=== PATIENT | female | born 1995 | race Caucasian/White ===

== ENCOUNTER → 2021-01-11 15:31 | Outpatient (CLI) | payer OTHER, MEDICAID, SELFPAY ==
--- NOTE | ~2021-01-11 | US_ITS ---
EXAMINATION: US OB <= 14 weeks fetus EXAM DATE: 01/11/2021 16:01 INDICATION: , uncertain dates. 1st trimester. TECHNIQUE: Pelvic obstetrical transabdominal sonogram was performed by a technologist. There are mu ltiple grayscale and Doppler images available for interpretation. There are no earlier studies of th is gestation for comparison. FINDINGS: Uterus measures 12.8 x 7.7 x 8.5 cm. There is intrauterine gestation sac. pole with heart rate confirmed at 177 beats per minute. The 3.0 cm crown-rump length corresponds to estimated gestational age by ultrasound of 9 weeks 6 days, estimated date of confinement 08/10/2021. Yolk sac is identified. There is a small subchorionic hemorrhage measuring 3 cm in diameter by 1 cm in thick ness. The ovaries are morphologically normal. IMPRESSION: Early live intrauterine gestation, age by ultrasound 9 weeks 6 days. Small subchorionic h emorrhage. Reviewed, dictated and finalized at location G. IMPRESSION: Early live intrauterine gestation, age by ultrasound 9 weeks 6 days . Small subchorionic hemorrhage.
== END ==
PROVIDERS: Visit Provider Obstetrics & Gynecology
DX: Z36.87 Encounter for antenatal screening for uncertain dates (principal); Z3A.09 9 weeks gestation of pregnancy; O36.8911 Maternal care for other specified fetal problems, first trimester, fetus 1
CPT/HCPCS: 76801

== ENCOUNTER → 2021-02-12 11:12 | Outpatient (CLI) | payer OTHER, MEDICAID, SELFPAY ==
--- NOTE | ~2021-02-12 | US_ITS ---
EXAMINATION: US OB limited DATE: 02/12/2021 11:28 INDICATION: Subchorionic hematoma during first trimester . TECHNIQUE: Real-time ultrasound of the pelvis was performed. The interpreting radiologist was not pre sent for the study. COMPARISON: None. FINDINGS: There is a single living fetus in breech presentation. The placenta is posterior and not low-lying w ith caudal margin 3.0 cm from the internal cervical os. No evident subchorionic hematoma. heart rate is 158 beats per minute (bpm). The amniotic fluid volume is subjectively normal. IMPRESSION: 1. Single living fetus in breech presentation with heart rate of 158 bpm. 2. Normal posterior placenta with no evident subchorionic hematoma. Reviewed, dictated and finalized at location A. IMPRESSION: 1. Single living fetus in breech presentation with heart rate of 158 bpm . 2. Normal posterior placenta with no evident subchorionic hematoma.
== END ==
PROVIDERS: Visit Provider Obstetrics & Gynecology
DX: O36.8910 Maternal care for other specified fetal problems, first trimester, not applicable or unspecified (principal); O32.1XX0 Maternal care for breech presentation, not applicable or unspecified; Z3A.00 Weeks of gestation of pregnancy not specified
CPT/HCPCS: 76815

== ENCOUNTER → 2021-04-02 10:57 | Outpatient (CLI) | payer OTHER, MEDICAID, SELFPAY ==
--- NOTE | ~2021-04-02 | US_ITS ---
EXAMINATION: US OB /maternal detail DATE: 04/02/2021 11:31 INDICATION: anatomic survey. TECHNIQUE: Real-time ultrasound of the pelvis was performed. COMPARISON: Ultrasound 02/12/2021, 01/11/2021 FINDINGS: There is a single living fetus in vertex presentation. The placenta is posterior, 8.5 cm from the ce rvix. heart rate is 131 beats per minute (bpm). The amniotic fluid volume is subjectively ashok l. The following biometric data were obtained: Biparietal diameter (BPD): 5.1 cm; head circumference (HC): 19.4 cm; abdominal circumference (AC): 16 .0 cm; femur length (FL): 3.3 cm. These measurements are concordant. Estimated weight is 387 g +/- 58 g, which correlates with 21st percentile when 08/10/21 is used as estimated date of delivery. As single measurements, these parameters are each equal to the following estimated gestational ages w ith ranges of +/- 2 standard deviations: BPD: 21 weeks 2 days (19 weeks 4 days - 23 weeks 0 days). HC: 21 weeks 5 days (20 weeks 1 days - 23 weeks 1 days). AC: 21 weeks 1 days (19 weeks 1 days - 23 weeks 1 days). FL: 20 weeks 3 days (18 weeks 5 days - 22 weeks 2 days). estimated gestational age based solely on measurements from this exam is 21 weeks 1 days +/- 1 weeks 3 days. The cerebral ventricles, cerebellum, cisterna magna, nuchal fold, nose/lip, and visualized portions o f the spine are normal. The heart is normal. The diaphragm, stomach, kidneys, and bladder are normal. There are two umbilical arteries to yield a 3-vessel cord. The cord insertion is normal. IMPRESSION: 1. Single living fetus in vertex presentation. 2. Estimated weight is 387 g +/- 58 g, which correlates with 21st percentile when 08/10/21 is u sed as estimated date of delivery. This date was set by ultrasound on 01/11/2021. 3. Normal anatomic survey. Reviewed, dictated and finalized at location A. IMPRESSION: 1. Single living fetus in vertex presentation. 2. Estimated weight is 387 g +/- 58 g, which correlates with percen tile when 08/10/21 is used as estimated date of delivery. This date was set by [facility] on 01/11/2021. 3. Normal anatomic survey.
== END ==
PROVIDERS: Visit Provider Obstetrics & Gynecology
DX: Z36.9 Encounter for antenatal screening, unspecified (principal)
CPT/HCPCS: 76805

== ENCOUNTER → 2021-05-24 12:53 | Outpatient (CLI) | payer OTHER, MEDICAID, SELFPAY ==
--- NOTE | ~2021-05-24 | US_ITS ---
EXAMINATION: US OB follow up EXAM DATE: 05/24/2021 13:27 INDICATION: Spotting. Early 3rd trimester. TECHNIQUE: Pelvic obstetrical transabdominal sonogram was performed by a technologist. There are mu ltiple grayscale and Doppler images available for interpretation. Patient was in waiting room and bro ught back for additional evaluation of placenta after initial images were reviewed. Comparison is mad e to prior examination from 04/02/2021. FINDINGS: There is a single fetus identified in vertex presentation (cord and hand between head and i nternal cervical os), with a heart rate of 126 beats per minute. The placenta is located in the poste rior position. There is no sonographic evidence of retroplacental hemorrhage identified. There is mendez bjectively expected amount of amniotic fluid. BIOMETRIC DATA: Biparietal diameter (BPD): 7.1 cm ----------------> 28 weeks 2 days. Head circumference (HC): 26.5 cm ----------------> 28 weeks 6 days. Abdominal circumference (AC): 25.2 cm ----------> 29 weeks 3 days. Femur length (FL): 5.5 cm --------------------------> 29 weeks 0 days. These measurements are concordant. HC/AC ratio is 1.05 (The 5th -- 95th percentile range is 0.9-1.21. Estimated weight is 1340 g +/- 201 g. This is the 47th percentile when the currently reported clinical gestation age 28 weeks 6 days, clinical estimated date of delivery (LIZZY-OPE) 08/10/2021 is us ed. estimated gestational age based on measurements from this exam is also 20 weeks 6 days, wit h an estimated date of delivery (LIZZY-AUA) 08/10. IMPRESSION: 1. Single fetus in vertex presentation with heart rate 126 beats per minute. 2. Estimated weight of 1340 grams, 47th percentile using the currently reported clinical gesta tion age of 28 weeks 6 days, LIZZY(OPE) 08/10. Reviewed, dictated and finalized at location B. IMPRESSION: 1. Single fetus in vertex presentation with heart rate 126 beats per minute. 2. Estimated weight of 1340 grams, 47th percentile using the currently r eported clinical gestation age of 28 weeks 6 days, LIZZY(OPE) 08/10.
== END ==
PROVIDERS: Visit Provider Obstetrics & Gynecology
DX: O26.853 Spotting complicating pregnancy, third trimester (principal); Z3A.28 28 weeks gestation of pregnancy
CPT/HCPCS: 76816

== ENCOUNTER 2021-06-30 16:40 | Outpatient (CLI) | payer OTHER, MEDICAID, SELFPAY ==
[2021-06-30] VITALS (10 sets, daily range): BP systolic 112–128; BP diastolic 53–62; PULSE 89–96; RESP 18; TEMP 36.7
[2021-06-30 17:31] LABS: Basophils Percent Auto 0.3 % (0.2-1.2); Eosinophils Absolute Auto 0.2 K/mm3 (0-0.3); Eosinophils Percent Auto 1.4 % (0-4.4); Hematocrit 30.5 % (37.0-47.0); Hemoglobin 9.9 g/dL (12.0-15.0); Immature Granulocyte Absolute 0.08 K/mm3 (0.00-0.031); Immature Granulocyte Percent A 0.8 % (0-0.5); Lymphocytes Absolute Auto 2.18 K/mm3 (0.9-3.2); Lymphocytes Percent Auto 20.7 % (18.3-44.2); Mean Corpuscular HGB Conc 32.5 g/dl (32-36); Mean Corpuscular Hemoglobin 28.3 pg (26-34); Mean Corpuscular Volume 87.1 fl (80-100); Mean Platelet Volume 9.9 fl (7.4-10.4); Monocytes Absolute Auto 0.9 K/mm3 (0.1-0.6); Monocytes Percent Auto 8.7 % (2.6-8.5); Neutrophils Absolute Auto 7.2 K/mm3 (1.3-6.7); Neutrophils Percent Auto 68.1 % (45.5-73.1); Platelet Count Result 248 k/mm3 (150-375); Red Cell Distribution Width 16.7 % (11.5-14.5); White Blood Count 10.5 K/mm3 (4.5-10.0)
[2021-06-30 17:44] LABS: Alanine Aminotransferase 10 U/L (4-35); Albumin Level 3.9 g/dL (3.5-5.1); Alkaline Phosphatase 162 U/L (38-126); Anion Gap 9 mmol/L (8-16); Aspartate Amino Transferase 17 U/L (14-36); Bilirubin,Total 0.3 mg/dL (0.2-1.3); Blood Urea Nitrogen 5 mg/dL (7-17); Calcium 9.7 mg/dL (8.4-10.2); Carbon Dioxide 18 mmol/L (22-30); Chloride 105 mmol/L (98-107); Estimated Glomerular Filt Rate > 60; Glucose 89 mg/dL (65-110); Potassium 3.4 mmol/L (3.4-5.0); Sodium 132 mmol/L (137-145); Uric Acid 4.7 mg/dL (2.5-7.5)
[2021-06-30 18:13] LABS: Add Urine Microscopic? YES; Appearance Urine Cloudy (Clear); Bacteria Urine 3+ /hpf; Bilirubin Urine Negative (Negative); Blood Urine Negative (Negative); Color Urine Yellow (Yellow); Glucose Urine UA Negative (Negative); Ketones Urine 1+ mg/dL (Negative); Leukocyte Esterase Ur Trace LEU/UL (NEGATIVE); Mucus Urine Few /lpf; Nitrate Urine Negative (Negative); Protein Urine Negative (Negative); Specific Grav Ur 1.009 (1.001-1.035); Squamous Epithelial Cell Urine Many /hpf (Few); Urobilinogen Urine Negative mg/dL (<2.0)
[2021-06-30 18:47] LABS: Creatinine Urine 67.5 mg/dL; Total Protein Urine Random 18 mg/dL; Ur Ttl Prot Creatinine Ratio 0.27 mg/mg (0-0.20)
--- NOTE | 2021-06-30 19:10 | PC.NURSE ---
190- paged Dr. Choe 1907- Dr. Choe responded to page. Labs reviewed, vitals reviewed, orders received to collect 24 urine sample. ok to d/c pt home.
== END 2021-06-30 19:25 ==
LOC: ANHOBOP 16:46 → ANHOBPP 16:47
PROVIDERS: Visit Provider Obstetrics & Gynecology
DX: O13.3 Gestational [pregnancy-induced] hypertension without significant proteinuria, third trimester (principal); Z3A.39 39 weeks gestation of pregnancy
CPT/HCPCS: 36415; 80053; 81001; 82570; 84156; 84550; 85025; 87086; 87088; 99199

== ENCOUNTER 2021-07-01 21:08 | Outpatient (CLI) | payer OTHER, MEDICAID, SELFPAY ==
[2021-07-01 21:41] VITALS: BMI 41.4
[2021-07-02 01:02] LABS: Collection Time Urine 24 HOURS
[2021-07-02 02:16] LABS: Creatinine Urine 70.5 mg/dL; Patient Weight 241 Lbs; Total Protein Urine Random 12 mg/dL
[2021-07-02 03:27] LABS: Creatinine Clearance Urine 152.5 ml/min (75-125); Total Protein Urine 24 Hr 228 mg/24hr (28-141); Total Volume 24 Hour Urine 1900 ml
== END 2021-07-01 21:09 | disposition home or self-care (01) ==
PROVIDERS: Visit Provider Obstetrics & Gynecology
DX: O13.3 Gestational [pregnancy-induced] hypertension without significant proteinuria, third trimester (principal); Z3A.29 29 weeks gestation of pregnancy
CPT/HCPCS: 81050; 82575; 84156

== ENCOUNTER 2021-07-24 12:34 | Outpatient (RCR) | payer OTHER, MEDICAID, SELFPAY ==
[2021-06-16 17:13] VITALS: BP 118/64; PULSE 91
[2021-06-21 17:10] VITALS: BP 120/64; PULSE 91
[2021-07-21 17:57] VITALS: BP 118/65; PULSE 88
--- NOTE | ~2021-07-24 | US_ITS ---
US OB follow up w BPP DATE: 07/21/2021 17:04 INDICATION: Gestational diabetes TECHNIQUE: Real-time and Doppler analysis COMPARISON: 05/24/2021 obstetrical ultrasound follow-up 04/02/2021 obstetrical ultrasound 02/12/2021 obstetrical ultrasound 01/11/2021 obstetrical ultrasound FINDINGS: Live lance intrauterine gestation, fetus in vertex presentation. heart rate of 135 bpm. The placenta is posterior. Amniotic fluid index measures 12.8 cm, within normal range. (5th percentil e DINA: 7.5 cm; 95th percentile DINA: 24.4 cm). Biparietal diameter: 9.44 cm; 38 weeks 3 days Head circumference 33.43 cm; 38 weeks 2 days Abdominal circumference 35.09 cm; 39 weeks Femur length 7.28 cm; 37 weeks 2 days Composite age by [place] pleural-based on the current measurements would be 38 weeks 2 days +/- 2 wee ks 5 days with LIZZY of 08/02/2021, compared to 08/10/2021 based upon 01/11/2021 first trimester ultrasound examination. Estimated weight: 3499 +/- 525 g Estimated weight-GP: 87.1% Femur length/BPD: 77.12, within normal range of 71.0-87.0 Head circumference/abdominal circumference 0.95, within normal range of 0.89-1.06 Femur length/abdominal disease case manager rn was 20.74, within normal range of 20.00-24.00 Femur length/head circumference: 21.77, within normal range of 20.81-22.90 BIOPHYSICAL PROFILE reported by quality assurance qa lab technician: breathin out of 2 movement: 2 out of 2 tone: 2 out of 2 Amniotic fluid pocket: 2 out of 2 Total score: 6 out of 8 IMPRESSION: Biophysical profile score of 6 out of 8; 2 points deducted for breathing Reviewed, dictated and finalized at Location A. Reviewed, dictated and finalized at location B. FILLER IMPRESSION: Biophysical profile score of 6 out of 8; 2 points deducted for feta l breathing
[2021-07-24 13:23] VITALS: BP 120/61; PULSE 113
== END 2021-09-14 23:59 | disposition home or self-care (01) ==
LOC: ANHOBOP 12:34
PROVIDERS: Visit Provider Obstetrics & Gynecology
DX: O24.419 Gestational diabetes mellitus in pregnancy, unspecified control (principal); Z3A.32 32 weeks gestation of pregnancy; Z3A.37 37 weeks gestation of pregnancy
CPT/HCPCS: 59025; 76816; 76819

== ENCOUNTER 2021-08-03 16:49 | Inpatient (IN) | payer OTHER, MEDICAID, SELFPAY ==
[2021-08-03] VITALS (16 sets, daily range): BP systolic 95–155; BP diastolic 55–80; PULSE 82–106; RESP 18; TEMP 37.2; BMI 39.9
[2021-08-03 18:03] LABS: Basophils Percent Auto 0.2 % (0.2-1.2); Eosinophils Absolute Auto 0.1 K/mm3 (0-0.3); Eosinophils Percent Auto 1.1 % (0-4.4); Hematocrit 30.5 % (37.0-47.0); Hemoglobin 9.9 g/dL (12.0-15.0); Immature Granulocyte Absolute 0.05 K/mm3 (0.00-0.031); Immature Granulocyte Percent A 0.5 % (0-0.5); Lymphocytes Absolute Auto 2.06 K/mm3 (0.9-3.2); Lymphocytes Percent Auto 21.8 % (18.3-44.2); Mean Corpuscular HGB Conc 32.5 g/dl (32-36); Mean Corpuscular Hemoglobin 26.8 pg (26-34); Mean Corpuscular Volume 82.7 fl (80-100); Monocytes Absolute Auto 0.9 K/mm3 (0.1-0.6); Monocytes Percent Auto 9.2 % (2.6-8.5); Neutrophils Absolute Auto 6.3 K/mm3 (1.3-6.7); Neutrophils Percent Auto 67.2 % (45.5-73.1); Platelet Count Result 242 k/mm3 (150-375); Red Blood Count 3.69 M/mm3 (4.2-5.4); Red Cell Distribution Width 17.7 % (11.5-14.5); White Blood Count 9.4 K/mm3 (4.5-10.0)
[2021-08-03 18:06] LABS: Glucose Point of Care 92 mg/dl (65-105)
[2021-08-03] MEDS: LACTATED RINGERS 1,000 ML 125 ML IV CONT (18:55)
[2021-08-03] MEDS: OXYTOCIN 30 UNITS/NS 500 ML 30 UNITS/500 ML BAG IV CONT (18:56)
[2021-08-03] MEDS: AMPICILLIN 2 GM/NS 100 ML 2 GM/100 ML BAG IVPB (18:56)
[2021-08-03 21:58] LABS: Glucose Point of Care 79 mg/dl (65-105)
--- NOTE | 2021-08-03 22:22 | WPDANESEPP ---
Anes - Eval Pre Procedure Procedure: Labor epidural Date/Time: 08/03/21 22:22 Surgeon: Heather Preop Diagnosis: Abd pain with contractions Pre Op Diagnosis: IOL Patient Data Age: 25 Gender: F Height: 1.65 m Weight: 109 kg Last Vital Signs Temp 98.9 F 08/03/21 21:02 Pulse 92 08/03/21 22:00 Resp 18 08/03/21 21:02 BP 113/66 08/03/21 22:00 Allergies Allergy/AdvReac Type Severity Reaction Status Date / Time No Known Allergies Allergy Verified 07/21/21 15:17 Home Medications Medication Instructions Recorded Confirmed Type Daily 1 tablet PO DAILY 06/30/21 07/21/21 History Iron (ferrous sulfate) 1 tablet PO DAILY 06/30/21 07/21/21 History ergocalciferol (vitamin D2) 50,000 unit PO WEEKLY 06/30/21 07/21/21 History insulin NPH isoph U-100 human 26 unit SUBCUT HS 06/30/21 07/21/21 History [Humulin N NPH U-100 Insulin] Laboratory Tests 08/03/21 08/03/21 08/03/21 17:52 17:58 17:58 WBC 9.4 K/mm3 K/mm3 (4.5-10.0) RBC 3.69 M/mm3 L M/mm3 (4.2-5.4) Hgb 9.9 g/dL L g/dL (12.0-15.0) Hct 30.5 % L % (37.0-47.0) MCV 82.7 fl fl (80-100) MCH 26.8 pg pg (26-34) MCHC 32.5 g/dl g/dl (32-36) RDW 17.7 % H % (11.5-14.5) Plt Count 242 k/mm3 k/mm3 (150-375) MPV 10.0 fl fl (7.4-10.4) Immature Gran % (Auto) 0.5 % % (0-0.5) Neut % (Auto) 67.2 % % (45.5-73.1) Lymph % (Auto) 21.8 % % (18.3-44.2) Castro % (Auto) 9.2 % H % (2.6-8.5) Eos % (Auto) 1.1 % % (0-4.4) Baso % (Auto) 0.2 % % (0.2-1.2) Lymph # (Auto) 2.06 K/mm3 K/mm3 (0.9-3.2) Castro # (Auto) 0.9 K/mm3 H K/mm3 (0.1-0.6) Eos # (Auto) 0.1 K/mm3 K/mm3 (0-0.3) Baso # (Auto) 0.0 K/mm3 K/mm3 (0.0-0.1) Abs Immat Gran (auto) 0.05 K/mm3 H K/mm3 (0.00-0.031) Absolute Neuts (auto) 6.3 K/mm3 K/mm3 (1.3-6.7) Absolute Nucleated RBC 0.0 K/mm3 K/mm3 (0.0-0.012) Nucleated RBC % 0.0 % % (0.0-0.2) POC Capillary Glucose 92 mg/dl mg/dl (65-105) RPR Pending Blood Type Antibody Screen 08/03/21 08/03/21 17:58 21:55 WBC RBC Hgb Hct MCV MCH MCHC RDW Plt Count MPV Immature Gran % (Auto) Neut % (Auto) Lymph % (Auto) Castro % (Auto) Eos % (Auto) Baso % (Auto) Lymph # (Auto) Castro # (Auto) Eos # (Auto) Baso # (Auto) Abs Immat Gran (auto) Absolute Neuts (auto) Absolute Nucleated RBC Nucleated RBC % POC Capillary Glucose 79 mg/dl mg/dl (65-105) RPR Blood Type A Positive Antibody Screen Negative Patient hx anesthesia problems: none Family hx anesthesia problems: none Results Review: All pre-operative results and documents have been reviewed as part of the pre-operative evaluation. [facility] Past Medical History Medical History Anxiety and depression Morbid obesity and not yet delivered Family History Family History Mother Hypertension Diabetes mellitus Father Hypertension Diabetes mellitus Social History Social History Smoking status: Former smoker Tobacco type: cigarettes Second hand tobacco smoke exposure: No Substance use: never Spiritual care concerns: No Exam Day of Procedure 08/03/21 22:22 Patient weight: morbidly obese Heart: regular rate and rhythm Lungs: clear to auscultation Airway: Mallampati scale class II Neurological: alert and oriented
[2021-08-03] MEDS: AMPICILLIN 1 GM/NS 50 ML 1 GM/50 ML BAG IVPB (23:09)
[2021-08-04] VITALS (148 sets, daily range): BP systolic 62–147; BP diastolic 35–115; PULSE 57–139; RESP 16; TEMP 36.6–37.4; O2SAT 95–100
[2021-08-04] MEDS: CALCIUM CARBONATE (TUMS) 500 MG (200 MG ELEMENTAL) PO (00:31)
[2021-08-04] MEDS: fentaNYL CITRATE INJ (*CRX) 100 MCG/2 ML VIAL 50 MCG IV PUSH (01:19)
[2021-08-04] MEDS: AMPICILLIN 1 GM/NS 50 ML 1 GM/50 ML BAG IVPB ×3 (02:59→11:39)
[2021-08-04 03:06] LABS: Glucose Point of Care 70 mg/dl (65-105)
[2021-08-04] MEDS: ACETAMINOPHEN 325 MG TABLET 650 MG PO (05:50)
[2021-08-04] MEDS: LACTATED RINGERS 1,000 ML 125 ML IV CONT ×2 (06:18→09:08)
[2021-08-04 07:09] LABS: Glucose Point of Care 75 mg/dl (65-105)
--- NOTE | 2021-08-04 08:03 | WPDOBADMIT ---
Obstetrics - Admit Note Admission Note: record reviewed. No pertinent additions to the history and/or any subsequent changes in the physical findings that are not consistent with the expected course of the were found. Additions to the history and/or subsequent changes in the physical findings follow. None.Here for MIL at 39 wks with GDMA2. Cervix 250/-2 AROM with clear fluid.
[2021-08-04] MEDS: ONDANSETRON INJ 4 MG/2 ML VIAL IV PUSH (09:04)
[2021-08-04 09:15] LABS: Glucose Point of Care 79 mg/dl (65-105)
[2021-08-04 13:11] LABS: Glucose Point of Care 76 mg/dl (65-105)
[2021-08-04 13:58] LABS: Rapid Plasma Reagin Non-Reactive (NonReactive)
[2021-08-04] MEDS: OXYTOCIN 30 UNITS/NS 500 ML 30 UNITS/500 ML BAG 125 UNITS IV CONT (15:42)
--- NOTE | 2021-08-04 15:51 | PM.OBPRVD ---
OB - Delivery Note Procedure Delivery date: 08/04/21 Procedure: SASHA collins into bed events: Gestational Diabetes and Labor Induction Intrapartal events: None Induction method: AROM and per pitocin protocol Delivery monitor: external FHT and external uterine Route of delivery: (Head delivered without patient aware; completed by RN into bed) Laceration Description: None Specimen: No Anesthesia type: Epidural Disposition: floor Complications: product delivery specialist Baby Date of : 08/04/21 Weeks of gestation at delivery: 39 Infant gender: Male presentation: vertex Placenta delivery description: Spontaneous (by me) cord vessel description: 3 Vessels score one minute: 8 score five minutes: 9 Narrative: I was called after found to be self delivering by RN. On my arrival infant being handed to nursery RN. Placenta then delivered with manual traction. No lacerations.
--- NOTE | 2021-08-04 15:54 | PM.OBDSVD ---
DS: Admitting Diagnosis Discharge Date 08/05/21 Admitting Diagnosis IUP 39 wks for MIL with GDMA2 DS: Discharge Diagnosis Discharge Diagnosis (1) 39 weeks gestation of : Code(s): Z3A.39 - 39 weeks gestation of Status: Acute (2) GDM, class A2: Code(s): O24.419 - Gestational diabetes mellitus in , unspecified control Status: Acute (3) (normal spontaneous vaginal delivery): Code(s): O80 - Encounter for full-term uncomplicated delivery Status: Acute OB - DS: Summary OB Procedures : NST and Ultrasound OB Procedures Intrapartum: Spontaneous Vag Delivery (by RN) OB Procedures: : None Peripartum Data Infant Delivery Method: Natural Vaginal Laceration Description: None complications: none Status at Discharge Functional status at discharge: independent ambulation Overall status at discharge: patient is progressing back to baseline Time Spent with Patient Time attestation: Total time spent providing and/or coordinating discharge services: DS: Data Data Completed and Pending Labs on day of discharge: Labs from last 24 hours 08/04/21 08/04/21 08/04/21 13:07 09:12 07:05 WBC RBC Hgb Hct MCV MCH MCHC RDW Plt Count MPV Immature Gran % (Auto) Neut % (Auto) Lymph % (Auto) Lanier % (Auto) Eos % (Auto) Baso % (Auto) Lymph # (Auto) Lanier # (Auto) Eos # (Auto) Baso # (Auto) Abs Immat Gran (auto) Absolute Neuts (auto) Absolute Nucleated RBC Nucleated RBC % POC Capillary Glucose 76 79 75 RPR Blood Type Antibody Screen 08/04/21 08/03/21 08/03/21 03:02 21:55 17:58 WBC RBC Hgb Hct MCV MCH MCHC RDW Plt Count MPV Immature Gran % (Auto) Neut % (Auto) Lymph % (Auto) Lanier % (Auto) Eos % (Auto) Baso % (Auto) Lymph # (Auto) Lanier # (Auto) Eos # (Auto) Baso # (Auto) Abs Immat Gran (auto) Absolute Neuts (auto) Absolute Nucleated RBC Nucleated RBC % POC Capillary Glucose 70 79 RPR Blood Type A Positive Antibody Screen Negative 08/03/21 08/03/21 08/03/21 17:58 17:58 17:52 WBC 9.4 RBC 3.69 L Hgb 9.9 L Hct 30.5 L MCV 82.7 MCH 26.8 MCHC 32.5 RDW 17.7 H Plt Count 242 MPV 10.0 Immature Gran % (Auto) 0.5 Neut % (Auto) 67.2 Lymph % (Auto) 21.8 Lanier % (Auto) 9.2 H Eos % (Auto) 1.1 Baso % (Auto) 0.2 Lymph # (Auto) 2.06 Lanier # (Auto) 0.9 H Eos # (Auto) 0.1 Baso # (Auto) 0.0 Abs Immat Gran (auto) 0.05 H Absolute Neuts (auto) 6.3 Absolute Nucleated RBC 0.0 Nucleated RBC % 0.0 POC Capillary Glucose 92 RPR Non-reactive Blood Type Antibody Screen Discharge Plan Discharge Attending physician on discharge: Araceli Romero Discharging Clinician: Araceli Romero Anticipated Discharge Date/Time: 08/05/21 15:55 Patient Disposition: Home, Self-Care Activity: may shower and pelvic rest Diet: regular Patient Instructions: Antibiotic Form Stand Alone Forms: General Discharge Information Follow-up/Referrals: Araceli Romero MD [Physician] - 6 Weeks Discharge Medications: Continued ergocalciferol (vitamin D2) 1,250 mcg (50,000 unit) capsule 50,000 unit PO WEEKLY RF: 0 Daily 1 tablet PO DAILY RF: 0 Iron (ferrous sulfate) 1 tablet PO DAILY RF: 0 Discontinued Humulin N NPH U-100 Insulin 100 unit/mL suspension 26 unit SUBCUT HS RF: 0 Date of admission: 08/03/21 16:49 Primary Care Provider: PHYSICIAN,PARAKEET RAISER Admitting Provider: Araceli Romero Attending physician on admission: Araceli Romero Condition: Stable
[2021-08-04] MEDS: WITCH HAZEL 40 PADS 1 PAD TOPICAL (17:37)
[2021-08-04] MEDS: BENZOCAINE 20% AER SPR (*SP) 56 GM CAN 1 SPRAY TOPICAL (17:37)
[2021-08-04] MEDS: IBUPROFEN 600 MG TABLET PO (18:35)
[2021-08-05] MEDS: IBUPROFEN 600 MG TABLET PO ×3 (00:40→14:56)
[2021-08-05] MEDS: ACETAMINOPHEN 325 MG TABLET 650 MG PO ×3 (03:10→14:54)
[2021-08-05 04:05] LABS: Hematocrit 27.8 % (37.0-47.0); Hemoglobin 8.7 g/dL (12.0-15.0)
--- NOTE | 2021-08-05 08:00 | PM.OBPNVD ---
OB - PN: Subj Subjective Date/time seen: 08/05/21 08:00 Patient comments: no complaints and pain well controlled baby status: doing well OB - PN: Obj Data Labs CBC & Chem 7: 08/05/21 03:05 Labs: Laboratory Results - last 24 hr 08/03/21 08/04/21 08/04/21 17:58 09:12 13:07 Hgb Hct POC Capillary Glucose 79 76 RPR Non-reactive 08/05/21 03:05 Hgb 8.7 L Hct 27.8 L POC Capillary Glucose RPR OB - PN A/P Plan day: 1 Plan: routine care, discharge home and follow up 6 weeks Time Spent With Patient Time: Total time spent is greater than 50% in coordination of care (as documented) at patient's floor/unit and/or counseling patient: Exam : Bimanual exam- vagina & uterus: other (Uterus firm, nt @U)
[2021-08-05] MEDS: MULTIVIT/MIN/PREN/FOL AC/IRON TABLET 1 TAB PO (08:47)
[2021-08-05] MEDS: POLYSACCHARIDE IRON COMPLEX 150 MG CAPSULE PO (08:47)
[2021-08-05] MEDS: DOCUSATE SODIUM 100 MG CAPSULE PO (08:47)
[2021-08-05 09:00] VITALS: BP 105/57; PULSE 87; RESP 18; TEMP 36.9
--- NOTE | 2021-08-05 09:58 | WPDANLDPN2 ---
Anes-Prog Note L&D Date/Time: 08/05/21 09:58 Comfortable throughout: labor and delivery Neuraxial method: epidural Epidural/Spinal procedure site: clean & non-tender Neuro status: Neuro function grossly intact. Cardiovascular status: normal Respiratory status: normal Airway patency: baseline Mental status: baseline Post-Op hydration status: normal Vital Signs: Last Vital Signs Temp 36.7 C 08/04/21 18:57 Pulse 105 H 08/04/21 18:57 Resp 16 08/04/21 18:57 BP 118/65 08/04/21 18:57 Pulse Ox 100 08/04/21 15:12 Pain score (VAS): 3 I/O: Intake & Output 08/04/21 08/05/21 08/05/21 23:59 07:59 15:59 Output Total 150 Balance -150 Post-procedural complaints: none Patient feedback: Patient satisfied with anesthetic care.
--- NOTE | 2021-08-05 11:14 | PC.NURSE ---
0735 - Mother verbalizes she is able to independently latch with appropriate positioning/alignment. She denies any nipple discomfort, is feeding as required and waking infant to feed if needed. is currently meeting outcomes for weight, output, jaundice and feeding frequencies. Mother states she does not require feeding assist/education at this time. Reviewed resources in the Mom/Baby guide. Instructed mother to call out for future feedings if assistance is needed.
[2021-08-05 12:35] VITALS: BP 104/51; PULSE 70; RESP 18; TEMP 36.6
[2021-08-08 11:37] VITALS: BP 121/62; PULSE 80; RESP 16; TEMP 36.9; O2SAT 98
== END 2021-08-05 16:19 | disposition home or self-care (01) | DRG 807 ==
LOC: ANHLDR 08-04 15:56 → ANHOB2 08-04 18:42
PROVIDERS: Admitting Provider Obstetrics & Gynecology Gynecology; Visit Provider Obstetrics & Gynecology Gynecology
DX: O24.429 Gestational diabetes mellitus in childbirth, unspecified control (principal); Z37.0 Single live birth; Z87.891 Personal history of nicotine dependence; O76 Abnormality in fetal heart rate and rhythm complicating labor and delivery; Z3A.39 39 weeks gestation of pregnancy
CPT/HCPCS: 36415; 82948; 85014; 85018; 85025; 86592; 86850; 86900; 86901; A9270; J0290; J2405; J2590; J2795; J3010; J7120

== ENCOUNTER 2022-04-09 12:56 | Emergency (ER) | payer OTHER, MEDICAID, SELFPAY ==
--- NOTE | ~2022-04-09 | US_ITS ---
EXAMINATION: US OB <=14 wk fetus w TV INDICATION: VB TECHNIQUE: Sonography of the pelvis was performed by transabdominal and transvaginal techniques. COMPARISON: None. RESULT: Uterus: Orientation: Anteverted. 12.2 x 7.0 x 6.1 cm. Myometrium: homogeneous echogenicity. The cerv ix is long and closed, measuring approximately 4.5 cm. Gestation: - Intrauterine gestational sac: Single present - Mean Sac Diameter: 1.33 cm, corresponding gestational age 6 week 1 days - Yolk sac: Present. - Embryo: Single present - Spade rump length: 0.43 cm, corresponding gestational age 6 weeks, 1 days -Gestational heart rate: present 123 bpm -Subgestational hematoma: Absent Right ovary: 3.2 x 2.1 x 2.0 cm. Normal sonographic appearance with small cyst or follicle. . Left ovary: Not visualized. Pelvis free fluid: None. IMPRESSION: Single, live intrauterine gestation. Estimated Gestational Age: 6 weeks, 1 days by crown rump length. LIZZY by ultrasound 12/02/2022. Reviewed, dictated and finalized at location K. IMPRESSION: Single, live intrauterine gestation. Estimated Gestational Age: 6 weeks, 1 days by crown rump length. LIZZY by ultras ound 12/02/2022.
[2022-04-09 13:03] VITALS: BP 143/71; PULSE 102; RESP 16; TEMP 36.9; O2SAT 100
--- NOTE | 2022-04-09 13:31 | ED.FEMALEGU ---
HPI - Female Genitourinary General Chief complaint: Vaginal Bleeding Stated complaint: vaginal bleeding, unknown gestation Time Seen by Provider: 04/09/22 13:30 Source: patient Mode of arrival: ambulatory Limitations: no limitations History of Present Illness HPI Narrative: 26 years old white female, was found to be recently, started having vaginal bleeding, heavy, more than her regular menstrual cycles, 3 days ago. Went to [place] emergency room, with normal blood work-up, no pelvic ultrasound available. Patient is 3, para 3, abortions 0 Related Data Home Medications Medication Instructions Recorded Confirmed Daily 1 tablet PO DAILY 06/30/21 07/21/21 Iron (ferrous sulfate) 1 tablet PO DAILY 06/30/21 07/21/21 ergocalciferol (vitamin D2) 1,250 50,000 unit PO WEEKLY 06/30/21 07/21/21 mcg (50,000 unit) capsule Allergies Allergy/AdvReac Type Severity Reaction Status Date / Time No Known Allergies Allergy Verified 04/09/22 13:31 Review of Systems Review of Systems: All systems reviewed & are unremarkable except as noted in HPI and below PMFSH Past Medical History Medical History Anxiety and depression Morbid obesity and not yet delivered Family History Family History Mother Hypertension Diabetes mellitus Father Hypertension Diabetes mellitus Social History Social History Smoking status: Former smoker Tobacco type: cigarettes Second hand tobacco smoke exposure: No Substance use: never Spiritual care concerns: No Exam Narrative: General appearance: Well-developed, well-nourished Skin: Normal color Head: Normocephalic, nontraumatic Eyes: Clear conjunctiva ENT: Oropharynx normal, ears normal, nose normal Neck: Supple, nontender Chest and respiratory: Airway patent, no respiratory distress, no accessory muscle use Heart: Regular rate/rhythm Abdomen: Soft, nontender, no organomegaly, quiet bowel sounds. Pelvic exam showed no active bleeding at this time, slight patch of brownish blood at the cervix. Otherwise normal vaginal exam. Vascular: Normal peripheral pulses, normal capillary refill. Musculoskeletal: Normal range of motion, nontender back Neurologic: Alert and oriented ?3, TRANSPORTATION MAINTENANCE OPERATOR is normal as tested, no gross motor deficit Course Consultations Consultation #1: Dr. Soriano Date: 04/09/22 Time: 15:16 Vital Signs Vital signs: Vital Signs Temperature 36.9 C 04/09/22 13:03 Pulse Rate 102 H 04/09/22 13:03 Respiratory Rate 16 04/09/22 13:03 Blood Pressure 143/71 H 04/09/22 13:03 Pulse Oximetry 100 04/09/22 13:03 Oxygen Delivery Room Air 04/09/22 13:03 Temperature 36.9 C 04/09/22 13:03 Pulse Rate 102 H 04/09/22 13:03 Respiratory Rate 16 04/09/22 13:03 Blood Pressure 143/71 H 04/09/22 13:03 Pulse Oximetry 100 04/09/22 13:03 Oxygen Delivery Room Air 04/09/22 13:03 MDM - Female Genitourinary Differential Diagnosis Differential diagnosis: Likely other (Incomplete , complete , threatened ) Lab Data Result diagrams: 04/09/22 13:38 Labs: Lab Results 04/09/22 04/09/22 04/09/22 Range/Units 13:38 13:38 13:38 WBC 6.0 (4.5-10.0) K/mm3 RBC 4.01 L (4.2-5.4) M/mm3 Hgb 12.9 D (12.0-15.0) g/dL Hct 38.2 (37.0-47.0) % MCV 95.3 (80-100) fl MCH 32.2 (26-34) pg MCHC 33.8 (32-36) g/dl RDW 13.5 (11.5-14.5) % Plt Count 264 (150-375) k/mm3 MPV 9.3 (7.4-10.4) fl Immature Gran % (Auto)
[2022-04-09 13:44] LABS: Basophils Percent Auto 0.7 % (0.2-1.2); Eosinophils Percent Auto 0.7 % (0-4.4); Hematocrit 38.2 % (37.0-47.0); Hemoglobin 12.9 g/dL (12.0-15.0); Immature Granulocyte Absolute 0.02 K/mm3 (0.00-0.031); Immature Granulocyte Percent A 0.3 % (0-0.5); Lymphocytes Absolute Auto 1.76 K/mm3 (0.9-3.2); Lymphocytes Percent Auto 29.4 % (18.3-44.2); Mean Corpuscular HGB Conc 33.8 g/dl (32-36); Mean Corpuscular Hemoglobin 32.2 pg (26-34); Mean Corpuscular Volume 95.3 fl (80-100); Mean Platelet Volume 9.3 fl (7.4-10.4); Monocytes Absolute Auto 0.5 K/mm3 (0.1-0.6); Monocytes Percent Auto 7.8 % (2.6-8.5); Neutrophils Absolute Auto 3.7 K/mm3 (1.3-6.7); Neutrophils Percent Auto 61.1 % (45.5-73.1); Platelet Count Result 264 k/mm3 (150-375); Red Blood Count 4.01 M/mm3 (4.2-5.4); Red Cell Distribution Width 13.5 % (11.5-14.5)
[2022-04-09 15:27] VITALS: BP 115/78; PULSE 80; RESP 16; O2SAT 100
== END 2022-04-09 15:28 | disposition home or self-care (01) ==
PROVIDERS: Emergency Provider Emergency Medicine
DX: O20.0 Threatened abortion (principal); Z3A.00 Weeks of gestation of pregnancy not specified; Z87.891 Personal history of nicotine dependence
CPT/HCPCS: 36415; 76801; 76817; 84702; 85025; 85461; 99284

== ENCOUNTER → 2022-04-29 11:10 | Outpatient (CLI) | payer OTHER, MEDICAID, SELFPAY ==
--- NOTE | ~2022-04-29 | US_ITS ---
EXAMINATION: US OB <= 14 weeks fetus DATE: 04/29/2022 11:29 INDICATION: Vaginal spotting TECHNIQUE: Real-time transabdominal and transvaginal obstetric ultrasound. FINDINGS: Comparison to 04/09/2022 The uterus measures 14.2 x 6.7 x 7.6 cm. There is an intrauterine gestational sac, with pole id entified. The crown rump length measures 2.62 cm.. heart tones are identified measuring 187 BPM. No evidence for subchorionic hemorrhage. IMPRESSION: 1. SL IUP with an EGA of 9 weeks, 0 days (EDC by initial ultrasound of 12/02/2022). Reviewed, dictated and finalized at location A. IMPRESSION: 1. SL IUP with an EGA of 9 weeks, 0 days (EDC by initial ultrasound of 12/03/19).
== END ==
PROVIDERS: PCP Obstetrics & Gynecology Gynecology; Visit Provider Obstetrics & Gynecology Gynecology
DX: O26.851 Spotting complicating pregnancy, first trimester (principal); Z3A.09 9 weeks gestation of pregnancy
CPT/HCPCS: 76801

== ENCOUNTER → 2022-07-08 08:44 | Outpatient (CLI) | payer OTHER, MEDICAID, SELFPAY ==
--- NOTE | ~2022-07-08 | US_ITS ---
EXAMINATION: US OB /maternal detail DATE: 07/08/2022 09:51 INDICATION: Second trimester anatomic survey TECHNIQUE: Real-time ultrasound of the pelvis was performed. COMPARISON: None. FINDINGS: There is a single living fetus in vertex presentation. The placenta is anterior and 5.6 cm from the i nternal cervical os. heart rate is 157 beats per minute (bpm). cardiac activity and feta l movement are noted. The amniotic fluid index is subjectively normal. The following anatomy was identified as normal: 4 chamber heart 3 vessel cord cord insertion kidneys urinary bladder stomach spine diaphragm ventricles cisterna magna cerebellum The following biometric data were obtained: Biparietal diameter (BPD): 4.5 cm; head circumference (HC): 16.6 cm; abdominal circumference (AC): 14 .7 cm; femur length (FL): 2.8 cm. These measurements are concordant. Estimated weight is 286 g +/- 42 g, which correlates with the 66th percentile when 12/02/2022 is used as estimated date of delivery. As single measurements, these parameters are each equal to the following estimated gestational ages w ith ranges of +/- 2 standard deviations: BPD: 19 weeks 4 days ( 17 weeks 6 days - 21 weeks 2 days). HC: 19 weeks 2 days ( 17 weeks 6 days - 20 weeks 6 days). AC: 20 weeks 0 days ( 17 weeks 6 days - 22 weeks 0 days). FL: 18 weeks 4 days ( 16 weeks 5 days - 20 weeks 3 days). estimated gestational age based solely on measurements from this exam is 19 weeks 3 days +/- 1 weeks 2 days. IMPRESSION: 1. Single living fetus in vertex presentation. 2. Estimated weight is 286 g +/- 42 g, which correlates with the 66th percentile when 12/02/2022 is used as estimated date of delivery. Reviewed, dictated and finalized at location A. INTERVIEWER IMPRESSION: 1. Single living fetus in vertex presentation. 2. Estimated weight is 286 g +/- 42 g, which correlates with the 66th per centile when 12/02/2022 is used as estimated date of delivery.
== END ==
PROVIDERS: PCP Obstetrics & Gynecology Gynecology; Visit Provider Obstetrics & Gynecology Gynecology
DX: Z36.89 Encounter for other specified antenatal screening (principal)
CPT/HCPCS: 76805

== ENCOUNTER → 2022-11-04 08:48 | Outpatient (CLI) | payer OTHER, MEDICAID, SELFPAY ==
--- NOTE | ~2022-11-04 | US_ITS ---
EXAMINATION: US OB follow up DATE: 11/04/2022 09:24 INDICATION: Excessive growth TECHNIQUE: Multiple obstetric sonographic images performed. FINDINGS: Comparison to multiple prior studies sequentially, with oldest reviewed study dated 2021. There is a single living fetus in vertex presentation. The placenta is anterior without placenta pre via. Amniotic fluid volume is normal. DINA measures 14.4 cm. cardiac activity and movement is noted with a heart rate of 159 beats per minute. The following biometric data were obtained: BPD: 90mm corresponds to gestational age 36 weeks 2 days. Head circumference: 326 mm corresponds to gestational age 36 weeks 6 days. Abdominal circumference: 330 mm corresponds to gestational age 36 weeks 6 days. Femur length: 68 mm corresponds to gestational age 34 weeks 6 days. Head circumference to abdominal circumference ratio: 0.99 (normal range for expected gestational age is 0.92-1.07). Estimated weight: 2907 grams +/- 436 grams using Hadlock method, 60.3% by Hadlock method. IMPRESSION: 1: Single living intrauterine with an estimated gestational age of 36weeks 0days by initial ultrasound measurements, with an EDC of 12/02/2022 in vertex presentation. Appropriate interval feta l growth. Reviewed, dictated and finalized at location B. IMPRESSION: 1: Single living intrauterine with an estimated gestational age of 36 weeks 0days by initial ultrasound measurements, with an EDC of 12/02/2022 in ve rtex presentation. Appropriate interval growth.
== END ==
PROVIDERS: PCP Obstetrics & Gynecology Gynecology; Visit Provider Obstetrics & Gynecology Gynecology
DX: O36.63X0 Maternal care for excessive fetal growth, third trimester, not applicable or unspecified (principal); Z3A.36 36 weeks gestation of pregnancy
CPT/HCPCS: 76816

== ENCOUNTER 2022-11-27 05:51 | Inpatient (IN) | payer OTHER, MEDICAID, SELFPAY ==
[2022-11-27] VITALS (113 sets, daily range): BP systolic 67–200; BP diastolic 35–166; PULSE 61–260; RESP 16; TEMP 36.1–36.7; O2SAT 96–100; BMI 41.3
--- NOTE | 2022-11-27 06:59 | WPDOBADMIT ---
Obstetrics - Admit Note Admission Note: record reviewed. No pertinent additions to the history and/or any subsequent changes in the physical findings that are not consistent with the expected course of the were found. Additions to the history and/or subsequent changes in the physical findings follow. None.
[2022-11-27 07:08] LABS: Basophils Percent Auto 0.2 % (0.2-1.2); Eosinophils Absolute Auto 0.1 K/mm3 (0-0.3); Eosinophils Percent Auto 1.1 % (0-4.4); Hematocrit 32.5 % (37.0-47.0); Hemoglobin 10.7 g/dL (12.0-15.0); Immature Granulocyte Absolute 0.07 K/mm3 (0.00-0.031); Immature Granulocyte Percent A 0.8 % (0-0.5); Lymphocytes Percent Auto 25.6 % (18.3-44.2); Mean Corpuscular HGB Conc 32.9 g/dl (32-36); Mean Corpuscular Hemoglobin 29.1 pg (26-34); Mean Corpuscular Volume 88.3 fl (80-100); Mean Platelet Volume 10.1 fl (7.4-10.4); Monocytes Absolute Auto 0.7 K/mm3 (0.1-0.6); Monocytes Percent Auto 7.8 % (2.6-8.5); Neutrophils Absolute Auto 5.8 K/mm3 (1.3-6.7); Neutrophils Percent Auto 64.5 % (45.5-73.1); Platelet Count Result 227 k/mm3 (150-375); Red Blood Count 3.68 M/mm3 (4.2-5.4); Red Cell Distribution Width 14.9 % (11.5-14.5)
[2022-11-27] MEDS: AMPICILLIN 2 GM/NS 100 ML 2 GM/100 ML BAG IVPB (07:20)
--- NOTE | 2022-11-27 07:22 | LDADM ---
This patient, Mayra Pina, was admitted to Labor/Delivery/Recovery 108 on 11/27/22 at 05:51. Plans for labor, pain management and were discussed with patient. Patient/family oriented to hospital policies and general routines including ID bracelet, bed and alarms, visiting hours, pain management, procedures, bathroom and other care routines, personal items, smoking policy, room service/diet and guest tray routines, security routines, and visiting hours. Patient/Family are encouraged to report perceived risks to care and to ask questions if they do not understand what they are told or what they should do. See OBIX for further documentation.
[2022-11-27] MEDS: LACTATED RINGERS 1,000 ML 125 ML IV CONT ×2 (07:38→11:02)
[2022-11-27] MEDS: OXYTOCIN 30 UNITS/NS 500 ML 30 UNITS/500 ML BAG IV CONT (08:30)
--- NOTE | 2022-11-27 10:56 | WPDANESEPPF ---
Anes - Initial Pre Proc Eval Date/Time: 11/27/22 10:56 Surgeon: Araceli Romero MD Pre Op Diagnosis: Induction of Labor Patient Data Age: 26 Gender: F Height: 1.65 m Weight: 112.5 kg Last Vital Signs Temp 36.6 C 11/27/22 10:00 Pulse 77 11/27/22 10:30 BP 122/49 L 11/27/22 10:30 O2 Del Method Room Air 11/27/22 07:14 Allergies Allergy/AdvReac Type Severity Reaction Status Date / Time No Known Allergies Allergy Verified 04/09/22 13:31 Home Medications Medication Instructions Recorded Confirmed Type Daily 1 tablet PO DAILY 06/30/21 11/27/22 History Iron (ferrous sulfate) 1 tablet PO DAILY 06/30/21 11/27/22 History ergocalciferol (vitamin D2) 1,250 50,000 unit PO WEEKLY 06/30/21 11/27/22 History mcg (50,000 unit) capsule Laboratory Tests 11/27/22 07:01 WBC 9.0 K/mm3 (4.5-10.0) RBC 3.68 L M/mm3 (4.2-5.4) Hgb 10.7 L g/dL (12.0-15.0) Hct 32.5 L % (37.0-47.0) MCV 88.3 fl (80-100) MCH 29.1 pg (26-34) MCHC 32.9 g/dl (32-36) RDW 14.9 H % (11.5-14.5) Plt Count 227 k/mm3 (150-375) MPV 10.1 fl (7.4-10.4) Immature Gran % (Auto) 0.8 H % (0-0.5) Neut % (Auto) 64.5 % (45.5-73.1) Lymph % (Auto) 25.6 % (18.3-44.2) Yates % (Auto) 7.8 % (2.6-8.5) Eos % (Auto) 1.1 % (0-4.4) Baso % (Auto) 0.2 % (0.2-1.2) Lymph # (Auto) 2.30 K/mm3 (0.9-3.2) Yates # (Auto) 0.7 H K/mm3 (0.1-0.6) Eos # (Auto) 0.1 K/mm3 (0-0.3) Baso # (Auto) 0.0 K/mm3 (0.0-0.1) Abs Immat Gran (auto) 0.07 H K/mm3 (0.00-0.031) Absolute Neuts (auto) 5.8 K/mm3 (1.3-6.7) Absolute Nucleated RBC 0.0 K/mm3 (0.0-0.012) Nucleated RBC % 0.0 % (0.0-0.2) RPR Pending Blood Type A Positive Antibody Screen Negative Patient hx anesthesia problems: none Family hx anesthesia problems: none Results Review: All pre-operative results and documents have been reviewed as part of the pre-operative evaluation. [facility] Past Medical History Medical History Anxiety and depression Morbid obesity and not yet delivered Family History Family History (Updated 11/27/22 @ 07:24 by Diane Avila RN) Mother Diabetes mellitus Hypertension Father Diabetes mellitus Hypertension Acute myocardial infarction Cerebrovascular accident Social History Social History Smoking status: Current every day smoker Tobacco type: e-cigarettes/vaping Second hand tobacco smoke exposure: No Substance use: never Lack of Transportation: No Lack of Food: Never True Current Housing: I Have Housing Concerned About Future Housing: No Difficulty Paying Gas/Electric Bills: No Difficulty Paying for Meds: No Currently Unemployed: No Education: High School Diploma/GED Difficulty w/ Childcare or Family Care: No Spiritual care concerns: No Anes - Eval Final PreProcedure Day of Procedure 11/27/22 10:56 Patient weight: morbidly obese Heart: regular rate and rhythm Lungs: clear to auscultation and normal air movement Airway: Mallampati scale class II Neurological: alert and oriented Last oral intake: >/= 8 hours ASA classification: III Emergent: no Anesthetic plan: proceed Anesthesia type and monitoring: regional epidural Results Review: All pre-operative results and documents have been reviewed as part of the pre-operative evaluation. Informed Consent: The patient's anesthetic plan and its attendant risks and benefits were discussed with the patient/family/POA. Questions were solicited and answers provided to the satisfaction of the patient/family/POA.
[2022-11-27] MEDS: AMPICILLIN 1 GM/NS 50 ML 1 GM/50 ML BAG IVPB ×2 (11:02→15:18)
--- NOTE | 2022-11-27 12:23 | PM.OBPNLAB ---
Pain Control Date/time seen: 11/27/22 12:20 Pain control: tolerating well and epidural Pelvic Exam Dilation (cm): 3 Effacement (%): 50 station: -3 Amniotic membrane status: Intact Comments: head well applied to cervix. Contractions Monitor mode: External Contraction frequency: 3 Contraction pattern: Regular Status status: Category l Assessment and Plan Assessment: induction ongoing Plan: continuous present management Comments: CNM to bedside. Discussed plan of care an option for amniotomy. Discussed risks, benefits, and expectations of breaking water. Patient is agreeable. Amniotomy performed and there was a small return of clear amniotic fluid. Patient tolerated procedure well. Plan repeat SVE in 2 hours. Discussed IUPC placement if indicated. Anticipate vaginal . Dr. Romero updated.
[2022-11-27] MEDS: ONDANSETRON INJ 4 MG/2 ML VIAL IV PUSH (17:00)
[2022-11-27] MEDS: miSOPROStol 200 MCG TABLET 800 MCG RECTAL (17:00)
--- NOTE | 2022-11-27 17:10 | P.PCNOB_ITS ---
OB - Delivery Note Procedure Delivery date: 11/27/22 Procedure: Events: Positive Group B Strep (GBS) Induction method: Per Pitocin Protocol Delivery augmentation: Rupture of Membranes Delivery monitor: External FHT and External Uterine Route of delivery: Episiotomy description: None Laceration Description: None Specimen: No Quantitative Blood Loss (ml): 250 Anesthesia type: Epidural Disposition: Floor [place] Baby Date of : 11/27/22 Weeks of gestation at delivery: 39 gender: Male Weight (pounds): 8 Weight (ounces): 10 presentation: vertex position: Right Occiput Anterior Placenta delivery description: Spontaneous (trailing membranes) Cord Vessel Description: 3 Vessels, Clamped/Cut and Delayed Cord Clamping score one minute: 9 score five minutes: 9 Narrative: patient arrived for induction of labor. She progressed to complete dilation and pushed with a few contractions. She delivered the head and there was excellent restitution. The anterior and posterior shoulders delivered easily followed by the remainder of the . The was placed on the maternal abdomen and dried and stimulated by the nursery staff. The after 1 minute of life the cord was doubly clamped and cut. Cord blood, cord gases, and cord segment were obtained. All delivery counts were correct and there was excellent hemostasis. Mother and baby skin to skin in the delivery room.
[2022-11-27] MEDS: OXYTOCIN 30 UNITS/NS 500 ML 30 UNITS/500 ML BAG 125 UNITS IV CONT (17:16)
--- NOTE | 2022-11-27 17:16 | PM.OBDSVD ---
DS: Admitting Diagnosis Discharge Date 11/28/2022 Admitting Diagnosis 26 y.o. at 39 weeks 2 days Anxiety Short interval DS: Discharge Diagnosis Discharge Diagnosis (1) (normal spontaneous vaginal delivery): Code(s): O80 - Encounter for full-term uncomplicated delivery Status: Acute (2) Mother currently breast-feeding: Code(s): Z39.1 - Encounter for care and examination of lactating mother Status: Acute OB - DS: Summary Hospital Course Hospital Course: Uncomplicated OB Procedures : Ultrasound OB Procedures Intrapartum: Spontaneous Vag Delivery and GBS prophylaxis OB Procedures: : None Peripartum Data Delivery Method: Natural Vaginal Laceration Description: None Episiotomy description: None complications: none Status at Discharge Overall status at discharge: patient is progressing back to baseline Time Spent with Patient Time attestation: Total time spent providing and/or coordinating discharge services: Exam Narrative: Alert and oriented. Mood is pleasant and cooperative. Urinating without difficulty. Denies passing any large clots. Perineum with minimal edema. Fundus firm and below umbilicus. Const: General: cooperative, healthy appearing, no acute distress and alert Orientation/consciousness: patient oriented x3 Limitations: no limitations Resp: Effort & Inspection: normal respiratory effort Auscultation: clear to auscultation bilaterally Cardio: Rate: regular rate GI: Inspection: normal to inspection Neuro: General: patient oriented x3 Extrem: General: normal to inspection Psych: Appearance: grossly normal Mental Status: mental status grossly normal Affect: normal affect Thought process: Normal thought process present DS: Data Data Completed and Pending Labs on day of discharge: Labs from last 24 hours 11/27/22 07:01 WBC 9.0 RBC 3.68 L Hgb 10.7 L Hct 32.5 L MCV 88.3 MCH 29.1 MCHC 32.9 RDW 14.9 H Plt Count 227 MPV 10.1 Immature Gran % (Auto) 0.8 H Neut % (Auto) 64.5 Lymph % (Auto) 25.6 Oliver % (Auto) 7.8 Eos % (Auto) 1.1 Baso % (Auto) 0.2 Lymph # (Auto) 2.30 Oliver # (Auto) 0.7 H Eos # (Auto) 0.1 Baso # (Auto) 0.0 Abs Immat Gran (auto) 0.07 H Absolute Neuts (auto) 5.8 Absolute Nucleated RBC 0.0 Nucleated RBC % 0.0 RPR Pending Blood Type A Positive Antibody Screen Negative Discharge Plan Discharge Attending physician on discharge: Araceli Romero Discharging Clinician: Bianca Atkins Anticipated Discharge Date/Time: 11/28/22 01:00 Patient Disposition: Home, Self-Care Activity: may shower Diet: as tolerated and regular Discharge Instructions: Continue taking your vitamin and any other supplements as previously directed (Examples: Iron, Vitamin D). You may take Tylenol 1000mg over the counter every 6 hours as needed for pain. Do not exceed 4000mg of Tylenol daily. You may continue using tucks pads and dermoplast spray if needed for a few more days. Patient Instructions: Antibiotic Form Stand Alone Forms: General Discharge Information Follow-up/Referrals: Bianca Atkins, CNM [Certified Nurse Electro Mechanical Solar Technician] - (6 week post exam.) Discharge Medications: New ibuprofen 600 mg tablet 600 mg PO Q6H PRN (Reason: pain) 14 Days Qty: 30 0RF Continued ergocalciferol (vitamin D2) 1,250 mcg (50,000 unit) capsule 50,000 unit PO WEEKLY Rx Instructions: on thur and sun Daily 1 tablet PO DAILY Iron (ferrous sulfate) 1 tablet PO DAILY Date of admission: 11/27/22 05:51 Primary Care Provider: PHYSICIAN,TYPE BAR AND SEGMENT ASSEMBLER Admitting Provider: Araceli Romero Attending physician on admission: Araceli Romero Condition: Stable
[2022-11-27] MEDS: ACETAMINOPHEN 325 MG TABLET 650 MG PO (17:49)
[2022-11-27] MEDS: BENZOCAINE 20% AER SPR (*SP) 56 GM CAN 1 SPRAY TOPICAL (19:07)
[2022-11-27] MEDS: WITCH HAZEL 40 PADS 1 PAD TOPICAL (19:07)
--- NOTE | 2022-11-27 19:25 | OBPPTRN ---
Patient transferred to post room #286 via wheelchair. Support person present. Oriented to unit, room, information board, rooming in, admission packet and security measures. Patient verbalizes understanding.
[2022-11-27] MEDS: IBUPROFEN 600 MG TABLET PO (21:43)
[2022-11-28] VITALS: BP 124/76; PULSE 78; RESP 18; TEMP 36.5; O2SAT 99
[2022-11-28] MEDS: IBUPROFEN 600 MG TABLET PO ×2 (04:28→11:42)
[2022-11-28 05:00] LABS: Hematocrit 30.8 % (37.0-47.0); Hemoglobin 10.2 g/dL (12.0-15.0)
[2022-11-28 07:46] LABS: Rapid Plasma Reagin Non-Reactive (NonReactive)
--- NOTE | 2022-11-28 08:10 | P.PNOB_ITS ---
OB - PN: Subj Subjective Date/time seen: 11/28/22 0725 Patient comments: no complaints and pain well controlled baby status: doing well and nursing well feeding status: exclusively breast feeding OB - PN: Obj Data Labs 11/28/22 04:22 Labs: Laboratory Results - last 24 hr 11/27/22 11/28/22 07:01 04:22 Hgb 10.2 L Hct 30.8 L RPR Non-reactive Blood Type A Positive Antibody Screen Negative OB - PN A/P Plan day: 1 Plan: routine care Comments: plans BTL today. Would like DC home today. Time Spent With Patient Time: Total time spent is greater than 50% in coordination of care (as documented) at patient's floor/unit and/or counseling patient: Review of Systems Review of Systems: All systems reviewed & are unremarkable except as noted in HPI and below Exam Narrative: Alert and oriented. Mood is pleasant and cooperative. Urinating without difficulty. Denies passing any large clots. Perineum with minimal edema. Fundus firm and below umbilicus. Const: General: cooperative, healthy appearing, no acute distress and alert Orientation/consciousness: patient oriented x3 Limitations: no limitations Resp: Effort & Inspection: normal respiratory effort Auscultation: clear to auscultation bilaterally Cardio: Rate: regular rate GI: Inspection: normal to inspection Neuro: General: patient oriented x3 Extrem: General: normal to inspection Psych: Appearance: grossly normal Mental Status: mental status grossly normal Affect: normal affect Thought process: Normal thought process pr esent
--- NOTE | 2022-11-28 08:10 | WPDANLDPN2 ---
Anes-Prog Note L&D Date/Time: 11/28/22 08:10 Neuro status: Neuro function grossly intact. Cardiovascular status: normal Respiratory status: normal Airway patency: baseline Mental status: baseline Post-Op hydration status: normal Vital Signs: Last Vital Signs Temp 36.5 C 11/28/22 00:00 Pulse 78 11/28/22 00:00 Resp 18 11/28/22 00:00 BP 124/76 11/28/22 00:00 Pulse Ox 99 11/28/22 00:00 O2 Del Method Room Air 11/27/22 19:30 Pain score (VAS): 0 I/O: Intake & Output 11/27/22 11/28/22 11/28/22 23:59 07:59 15:59 Output Total 200 Balance -200 Post-procedural complaints: none Patient feedback: Patient satisfied with anesthetic care.
[2022-11-28 08:20] VITALS: BP 117/69; PULSE 78; RESP 14; O2SAT 100
[2022-11-28] MEDS: ACETAMINOPHEN 325 MG TABLET 650 MG PO (08:48)
[2022-11-28] MEDS: MULTIVIT/MIN/PREN/FOL AC/IRON TABLET 1 TAB PO (08:48)
--- NOTE | 2022-11-28 11:35 | PC.NURSE ---
[id number] Introductions were made, then consulted with patient to assess needs related to . Mother led the conversation with her?plans to feed?her infant and the?experience so far. RN encouraged [id number] and massage touch to stimulate for wakefulness to breastfeed. Resources provided for inpatient and outpatient services with the feeding sheet, mom/baby guide and name written on the white board. Mother voiced understanding of information and will call if there is a request for assistance. Reported to the primary RN.
[2022-11-28 12:23] VITALS: BP 123/76; PULSE 81; RESP 16; TEMP 37.4; O2SAT 98
[2022-11-29 09:15] VITALS: BP 127/60; PULSE 83; RESP 18; TEMP 37.5; O2SAT 98
== END 2022-11-28 18:55 | disposition home or self-care (01) | DRG 807 ==
LOC: ANHLDR 17:18 → ANHOB2 11-28 12:59 → ANHLDR 11-29 09:32 → ANHOB2 11-29 09:32
PROVIDERS: Admitting Provider Obstetrics & Gynecology Gynecology; Visit Provider Advanced Practice Midwife
DX: O99.824 Streptococcus B carrier state complicating childbirth (principal); Z37.0 Single live birth; Z3A.39 39 weeks gestation of pregnancy
CPT/HCPCS: 36415; 85014; 85018; 85025; 86592; 86850; 86900; 86901; A9270; J0290; J2405; J2590; J2795; J7120

== ENCOUNTER → 2022-12-14 09:38 | Outpatient (CLI) | payer OTHER, MEDICAID, SELFPAY ==
--- NOTE | ~2022-12-14 | US_ITS ---
EXAMINATION: US soft tissue abdomen DATE: 12/14/2022 10:10 INDICATION: Umbilical lump. TECHNIQUE: Multiple grayscale and Doppler ultrasound images of the abdomen were obtained. COMPARISON: None FINDINGS: There is a 2 cm mass at the umbilicus. IMPRESSION: 1. 2 cm mass at the umbilicus, likely a hernia. Reviewed, dictated and finalized at location A.
== END ==
PROVIDERS: PCP Obstetrics & Gynecology Gynecology; Visit Provider Obstetrics & Gynecology Gynecology
DX: R19.09 Other intra-abdominal and pelvic swelling, mass and lump (principal)
CPT/HCPCS: 76705